=== PATIENT | female | born 1950 | race Caucasian/White ===

== ENCOUNTER → 2017-03-31 | Outpatient (CLI) | payer MEDICARE ==
--- NOTE | ~2017-03-31 | MY11 ---
[facility] A Service of [facility] RADIOLOGY TEXT RESULTS PATIENT: REINA STEEL LOCATION: [facility] : [birth year] UNIT #: [id number] AGE: [address]: Trupti Gambino MD SEX: F ORDER DR: [id number] [place] [id number] O MR#: [id number] Acc #: [id number] NAME: REINA STEEL : 1950 SEX: F STUDY DATE/TIME: 03/31/2017 9:37 UNIT: [facility] ROOM: STUDY DESCRIPTION: MY Mammogram Screening Dig Mark Attending Physician: Trupti Gambino M.D. Referring Physician: Trupti Gambino M.D. Ordering Physician: Trupti Gambino M.D. Primary Care Physician: Azra Cisneros M.D. MEDICAL IMAGING REPORT This report is preliminary unless electronic signature is present. EXAM Digital screening mammogram with CAD INDICATIONS Routine screening. PROCEDURE Bilateral CC and MLO views obtained on a digital mammography unit, FDA-approved CAD device utilized. COMPARISON 01/27/2015 FINDINGS Scattered fibroglandular density. No dominant mass or suspicious calcification. Stable 9 mm focal asymmetry in the upper outer quadrant of the right breast. IMPRESSION Stable benign screening mammogram, screen interval 1 year is suggested. BIRADS II Patients over the age of 40 are entered into a reminder system with target due date for the next mammogram. A result letter will also be sent to the patient. BIRADS: 2 - Benign finding Dictated by... Davide Murillo M.D. THIS IS AN ELECTRONICALLY VERIFIED REPORT Davide Murillo M.D. at 04/01/2017 7:12 AM [facility] A Service [facility] RADIOLOGY TEXT RESULTS PATIENT: REINA STEEL LOCATION: [facility] : [birth year] UNIT #: [id number] AGE: [address]: Trupti Gambino MD SEX: F ORDER DR: Eran TD: 03/31/2017 18:48 JOB #: [id number] MEDICAL IMAGING REPORT Page 1 of 1
== END | disposition home or self-care (01) ==
LOC: SMAM 08:59
DX: Z12.31 Encounter for screening mammogram for malignant neoplasm of breast (principal)
CPT/HCPCS: G0202